=== PATIENT | female | born 1970 | race Caucasian/White ===

== ENCOUNTER 2017-08-16 14:01 | Emergency (ER) | payer MEDICAID ==
[~2017-08-16] VITALS: Ht 177.8 cm; Wt 102.5 kg
[2017-08-16 14:09] VITALS: Ht 177.8 cm; Wt 102.5 kg
[2017-08-16 15:38] LABS: BASOPHIL % 0.3 % (0-2); PLATELET COUNT 234 x10^3mcL (130-400)
[2017-08-16 15:55] LABS: CALCIUM 8.8 mg/dL (8.5-10.1); CARBON DIOXIDE 28.8 mmol/L (21-32); CHLORIDE SERUM 106 mmol/L (98-107); CREATININE SERUM 0.7 mg/dL (0.6-1.0); GFR1 > 60 mL/min; GLUCOSE SERUM 90 mg/dL (74-106); POTASSIUM SERUM 3.9 mmol/L (3.5-5.1); SODIUM SERUM 139 mmol/L (136-145)
[2017-08-16 15:58] LABS: ALBUMIN 3.4 g/dL (3.4-5.0); ALKALINE PHOSPHATASE 84 U/L (46-116); ALT/SGPT 40 U/L (14-59); AST/SGOT 55 U/L (15-37); BILIRUBIN TOTAL 0.4 mg/dL (0.20-1.00); TOTAL PROTEIN, SERUM 7.4 g/dL (6.4-8.2)
[2017-08-16 16:35] VITALS: BP 158/94
== END 2017-08-16 16:35 | disposition home or self-care (01) ==
LOC: ED 14:01
PROVIDERS: Emergency Medicine
DX: I10 Essential (primary) hypertension (principal); R42 Dizziness and giddiness
CPT/HCPCS: 36415; J8597

== ENCOUNTER 2018-02-05 13:26 | Emergency (ER) | payer MEDICAID ==
[~2018-02-05] VITALS: Ht 170.2 cm; Wt 90.7 kg
[2018-02-05 13:31] VITALS: BP 191/65
== END 2018-02-05 14:36 | disposition home or self-care (01) ==
LOC: ED 13:26
DX: S60.222A Contusion of left hand, initial encounter (principal); I10 Essential (primary) hypertension; Z90.89 Acquired absence of other organs; Z90.49 Acquired absence of other specified parts of digestive tract; W01.0XXA Fall on same level from slipping, tripping and stumbling without subsequent striking against object, initial encounter; Y93.E1 Activity, personal bathing and showering; Y92.091 Bathroom in other non-institutional residence as the place of occurrence of the external cause; Y99.8 Other external cause status

== ENCOUNTER 2018-02-09 12:00 | Emergency (ER) | payer MEDICAID ==
[~2018-02-09] VITALS: Ht 167.6 cm; Wt 87.5 kg
[2018-02-09 12:58] VITALS: BP 134/91
== END 2018-02-09 12:58 | disposition home or self-care (01) ==
LOC: ED 12:00
DX: I10 Essential (primary) hypertension (principal); R42 Dizziness and giddiness
CPT/HCPCS: 82962

== ENCOUNTER 2019-02-24 10:01 | Emergency (ER) | payer MEDICAID ==
[~2019-02-24] VITALS: Ht 172.7 cm; Wt 90.3 kg
[2019-02-24 10:02] VITALS: Ht 172.7 cm; Wt 90.3 kg
[2019-02-24 11:24] VITALS: BP 61/75
== END 2019-02-24 11:24 | disposition home or self-care (01) ==
LOC: ED 10:01
DX: H66.93 Otitis media, unspecified, bilateral (principal); I10 Essential (primary) hypertension

== ENCOUNTER 2019-04-04 09:45 | Emergency (ER) | payer MEDICAID ==
[~2019-04-04] VITALS: Ht 165.1 cm; Wt 90.3 kg
[2019-04-04 09:50] VITALS: Ht 165.1 cm; Wt 90.3 kg
[2019-04-04 10:20] VITALS: BP 122/75
== END 2019-04-04 10:20 | disposition home or self-care (01) ==
LOC: ED 09:45
DX: B34.9 Viral infection, unspecified (principal); I10 Essential (primary) hypertension; Z90.49 Acquired absence of other specified parts of digestive tract; Z90.89 Acquired absence of other organs

== ENCOUNTER 2019-04-13 11:56 | Emergency (ER) | payer MEDICAID ==
[~2019-04-13] VITALS: Ht 172.7 cm; Wt 91.6 kg
[2019-04-13 12:06] VITALS: BP 144/83; Ht 172.7 cm; Wt 91.6 kg
== END 2019-04-13 13:16 | disposition home or self-care (01) ==
LOC: ED 11:56
DX: J40 Bronchitis, not specified as acute or chronic (principal); N39.0 Urinary tract infection, site not specified; I10 Essential (primary) hypertension
CPT/HCPCS: 87804

== ENCOUNTER 2019-04-17 08:18 | Emergency (ER) | payer MEDICAID ==
[~2019-04-17] VITALS: Ht 172.7 cm; Wt 91.6 kg
[2019-04-17 08:32] VITALS: Ht 172.7 cm; Wt 91.6 kg
[2019-04-17 09:39] LABS: CALCIUM 9.1 mg/dL (8.5-10.1); CARBON DIOXIDE 29.4 mmol/L (21-32); CHLORIDE SERUM 100 mmol/L (98-107); GFR1 > 60 mL/min; GLUCOSE SERUM 102 mg/dL (74-106); SODIUM SERUM 137 mmol/L (136-145)
[2019-04-17 09:44] LABS: ALKALINE PHOSPHATASE 89 U/L (46-116); ALT/SGPT 80 U/L (14-59); AST/SGOT 103 U/L (15-37); BILIRUBIN TOTAL 0.4 mg/dL (0.20-1.00); TOTAL PROTEIN, SERUM 8.1 g/dL (6.4-8.2)
[2019-04-17 09:45] LABS: ALBUMIN 3.2 g/dL (3.4-5.0)
[2019-04-17 09:51] LABS: BASOPHIL % 0.2 % (0-2); PLATELET COUNT 322 x10^3mcL (130-400); RED CELL DISTRIBUTION WIDTH 12.7 % (11.5-14.5)
[2019-04-17 11:47] VITALS: BP 127/83
== END 2019-04-17 11:47 | disposition home or self-care (01) ==
LOC: ED 08:18
PROVIDERS: Emergency Medicine
DX: M54.5 Low back pain (principal); R53.1 Weakness; R20.0 Anesthesia of skin; I10 Essential (primary) hypertension
CPT/HCPCS: 36415; J0696; J1885